=== PATIENT | female | born 1990 | race Caucasian/White ===

== ENCOUNTER 2017-11-03 16:27 | Emergency (ER) | payer OTHER ==
[2017-11-03 17:18] LABS: Urine Blood NEGATIVE (NEG); Urine Glucose NEGATIVE (NEG); Urine Protein TRACE (NEG)
[2017-11-03 17:59] LABS: Absolute Lymphocytes (CBC) 0.6 K/uL (0.7-4.9); Absolute Monocytes 1.2 K/uL (0.1-1.3); Absolute Neutrophil 10.6 K/uL (1.8-8.0); Basophils % 0.2 % (0-1.3); Eosinophils % 0.1 % (0-4.4); Hematocrit 38.3 % (36.0-45.0); Lymphocytes % 4.6 % (15.3-44.8); MCH 29.3 pg (27.0-35.0); MCV 86.2 fL (80-100); MPV 7.1 fL (7.6-11.3); Monocytes % 9.4 % (3.3-12.3); RBC Red Blood Cell Count 4.44 M/uL (3.86-4.86)
[2017-11-03] MEDS ORDERED: METOCLOPRAMIDE 10 MG/2mL INJ ONE (18:00)
[2017-11-03] MEDS ORDERED: DIPHENHYDRAMINE 50 MG/ML VIAL ONE (18:00)
[2017-11-03] MEDS ORDERED: KETOROLAC 30 MG/ML INJ ONE (18:00)
[2017-11-03] MEDS ORDERED: NA CHLORIDE 0.9% 1,000 ML ONE (18:00)
[2017-11-03 18:11] LABS: BUN Blood Urea Nitrogen 13 mg/dL (6-20); Bicarbonate 26 mEq/L (21-31); Glucose Level 100 mg/dL (65-120); Potassium 3.4 mEq/L (3.6-5.0); Sodium Level 138 mEq/L (135-145)
[2017-11-03] MEDS ORDERED: POTASSIUM CL SA 10 MEQ TAB PO ONE (18:47)
--- NOTE | 2017-11-03 19:33 | ER ---
Nurse's Notes [facility] Name: Jessie Tirado Age: 27 yrs Sex: Female : 1990 Arrival Date: 11/03/2017 Time: 16:29 Bed 14 Private MD: Musa Mckeon Diagnosis: Migraine Presentation: 11/03 16:32 Presenting complaint: Patient states: I have a bad headache, nausea, and chills. la1 Transition of care: patient was not received from another setting of care. Onset of symptoms was November 03, 2017. Initial Sepsis Screen: Does the patient meet any 2 criteria? No. Patient's initial sepsis screen is negative. Does the patient have a suspected source of infection? No. Patient's initial sepsis screen is negative. Care prior to arrival: None. 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 - Social history:: Smoking status: Patient/guardian denies using tobacco. Screenin:22 Abuse screen: Denies threats or abuse. Denies injuries from another. Nutritional ph screening: No deficits noted. Tuberculosis screening: No symptoms or risk factors identified. Fall Risk None identified. Assessment: 18:12 General: Appears in no apparent distress. uncomfortable, slender, well groomed, ph Behavior is calm, cooperative, appropriate for age, Denies fever, feeling ill. Pain: Complains of pain in head Pain currently is 7 out of 10 on a pain scale. Neuro: Level of Consciousness is awake, alert, obeys commands, Oriented to person, place, time, situation, Reports headache in entire head photophobia Denies blurred vision dizziness. Cardiovascular: Capillary refill < 3 seconds Patient's skin is warm and dry. Respiratory: Airway is patent Respiratory effort is even, unlabored, Respiratory pattern is regular, symmetrical. GI: Reports nausea, vomiting. Derm: Skin is intact, is healthy with good turgor, Skin is pink, warm \T\ dry. Musculoskeletal: Circulation, motion, and sensation intact. Range of motion: intact in all extremities. 19:09 Reassessment: Patient appears in no apparent distress at this time. Patient and/or ph family updated on plan of care and expected duration. Pain level reassessed. Patient is alert, oriented x 3, equal unlabored respirations, skin warm/dry/pink. PT resting quietly with lights off in room, states that headache has improved to 3/10 and denies nausea, SO at bedside, VSS. 19:56 Reassessment: No changes from previously documented assessment. Patient and/or family bs1 updated on plan of care and expected duration. Pain level reassessed. Patient is alert, oriented x 3, equal unlabored respirations, skin warm/dry/pink. Vital Signs: 16:33 BP 113 / 70; Pulse 111; Resp 19; Temp 100.0(TE); Pulse Ox 100% on R/A; Weight 56.7 kg; la1 Height 5 ft. 4 in. (162.56 cm); 18:25 BP 98 / 67; Pulse 83; Resp 18; Pulse Ox 100% on R/A; ph 19:57 BP 95 / 66; Pulse 94; Resp 18; Temp 98.0(T); Pulse Ox 99% on R/A; Pain 0/10; bs1 16:33 Body Mass Index 21.46 (56.70 kg, 162.56 cm) la1 [place] Coma Score: 17:54 Eye Response: spontaneous(4). Verbal Response: oriented(5). Motor Response: obeys kb commands(6). Total: 15. ED Course: 16:29 Patient arrived in ED. as 16:29 Musa Mckeon MD is Private Physician. as 16:33 Triage completed. la1 16:33 Arm band placed on left wrist. la1 17:27 Jyotsna Meyer [facility]C [facility]. kb 17:27 Pete Chandler MD is Attending Physician. kb 17:50 Initial lab(s) drawn, by me, sent to lab. Flu and/or RSV swab sent to lab. jb1 17:50 Inserted saline lock: 22 gauge. jb1 17:55 Alice Nino, BREONNA is Primary Nurse. ph 18:23 Patient has correct armband on for positive identification. Bed in low position. Call ph light in reach. Side rails up X 1. Pulse ox on. NIBP on. Warm blanket given. 18:28 No provider procedures requiring assistance completed. ph 19:45 IV discontinued, bleeding controlled, No redness/swelling at site. Pressure dressing bs1 applied. Administered Medications: 18:11 Drug: Benadryl 12.5 mg Route: IVP; Site: right antecubital; ph 20:07 Follow up: Response: No adverse reaction bs1 18:12 Drug: NS 0.9% 1000 ml Route: IV; Rate: 1000 ml; Site: right antecubital; ph 20:06 Follow up: IV Status: Completed infusion bs1 18:12 Drug: Reglan 10 mg Route: IVP; Site: right antecubital; ph 20:07 Follow up: Response: No adverse reaction bs1 18:12 Drug: TORadol 30 mg Route: IVP; Site: right antecubital; ph 20:07 Follow up: Response: No adverse reaction bs1 19:00 Drug: Potassium Chloride 20 mEq Route: PO; ph 20:06 Follow up: Response: No adverse reaction bs1 Outcome: 19:32 Discharge ordered by . kb 19:58 Discharged to home ambulatory. bs1 19:58 Condition: stable 19:58 Discharge instructions given to patient, Instructed on discharge instructions, follow up and referral plans. medication usage, Demonstrated understanding of instructions, follow-up care. 20:07 Patient left the ED. bs1 Signatures: Rodger Aragon jb1 Jyotsna Meyer, TRAINING ENGINEER-C TRAINING ENGINEER-Archana Conner Lee, RN RN laAlice Ghosh RN RN ph Salazar, Brittany, RN RN bs1 Corrections: (The following items were deleted from the chart) 18:24 18:23 Inserted saline lock: 22 gauge gilberto jb1
--- NOTE | 2017-11-03 19:33 | EDPHYS ---
Physician Documentation [facility] Name: Jessie Tirado Age: 27 yrs Sex: Female : 1990 Arrival Date: 11/03/2017 Time: 16:29 Bed 14 Private MD: Musa Mckeon ED Physician Pete Chandler HPI: 11/03 17:54 This 27 yrs old Female presents to ER via Ambulatory with complaints of kb Headache, Vomiting. 17:54 The patient complains of pain to the forehead. The patient describes the headache as kb constant. Onset: The symptoms/episode began/occurred today, at 12:00. Associated signs and symptoms: Pertinent positives: nausea, vomiting. Severity of symptoms: At its worst the pain was mild, moderate, in the emergency department the pain is unchanged. Headache History: The patient has had previous headaches and this one is similar to previous episodes. The symptoms are alleviated by nothing. the symptoms are aggravated by lights. The patient has experienced similar episodes in the past. The patient has not recently seen a physician. Pt c/o headache that started at 1200 today. States she has a history of migraines, but hasn't had one in a while. Also reports nausea, vomiting and chills. States she is breast feeding and has a clogged duct. . 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 - Social history:: Smoking status: Patient/guardian denies using tobacco. ROS: 17:54 Eyes: Negative for injury, pain, redness, and discharge, ENT: Negative for injury, kb pain, and discharge, Neck: Negative for injury, pain, and swelling, Cardiovascular: Negative for chest pain, palpitations, and edema, Respiratory: Negative for shortness of breath, cough, wheezing, and pleuritic chest pain, Back: Negative for injury and pain, : Negative for injury, bleeding, discharge, and swelling, MS/Extremity: Negative for injury and deformity, Skin: Negative for injury, rash, and discoloration. 17:54 Constitutional: Positive for chills, Negative for body aches, fatigue, fever, malaise, poor PO intake, weight loss. 17:54 Abdomen/GI: Positive for nausea and vomiting, Negative for abdominal pain, diarrhea, constipation, abdominal cramps, abdominal distension, anorexia. 17:54 Neuro: Positive for headache. Exam: 17:54 Constitutional: This is a well developed, well nourished patient who is awake, alert, kb and in no acute distress. Head/Face: Normocephalic, atraumatic. Eyes: Pupils equal round and reactive to light, extra-ocular motions intact. Lids and lashes normal. Conjunctiva and sclera are non-icteric and not injected. Cornea within normal limits. Periorbital areas with no swelling, redness, or edema. ENT: Nares patent. No nasal discharge, no septal abnormalities noted. Tympanic membranes are normal and external auditory canals are clear. Oropharynx with no redness, swelling, or masses, exudates, or evidence of obstruction, uvula midline. Mucous membranes moist. Neck: Trachea midline, no thyromegaly or masses palpated, and no cervical lymphadenopathy. Supple, full range of motion without nuchal rigidity, or vertebral point tenderness. No Meningismus. Chest/axilla: Normal chest wall appearance and motion. Nontender with no deformity. No lesions are appreciated. Cardiovascular: Regular rate and rhythm with a normal S1 and S2. No gallops, murmurs, or rubs. Normal PMI, no JVD. No pulse deficits. Respiratory: Lungs have equal breath sounds bilaterally, clear to auscultation and percussion. No rales, rhonchi or wheezes noted. No increased work of breathing, no retractions or nasal flaring. Abdomen/GI: Soft, non-tender, with normal bowel sounds. No distension or tympany. No guarding or rebound. No evidence of tenderness throughout. Skin: Warm, dry with normal turgor. Normal color with no rashes, no lesions, and no evidence of cellulitis. MS/ Extremity: Pulses equal, no cyanosis. Neurovascular intact. Full, normal range of motion. Neuro: Awake and alert, GCS 15, oriented to person, place, time, and situation. Cranial nerves II-XII grossly intact. Motor strength 5/5 in all extremities. Sensory grossly intact. Cerebellar exam normal. Normal gait. Vital Signs: 16:33 BP 113 / 70; Pulse 111; Resp 19; Temp 100.0(TE); Pulse Ox 100% on R/A; Weight 56.7 kg; la1 Height 5 ft. 4 in. (162.56 cm); 18:25 BP 98 / 67; Pulse 83; Resp 18; Pulse Ox 100% on R/A; ph 19:57 BP 95 / 66; Pulse 94; Resp 18; Temp 98.0(T); Pulse Ox 99% on R/A; Pain 0/10; bs1 16:33 Body Mass Index 21.46 (56.70 kg, 162.56 cm) la1 [place] Coma Score: 17:54 Eye Response: spontaneous(4). Verbal Response: oriented(5). Motor Response: obeys kb commands(6). Total: 15. MDM: 17:27 Patient medically screened. kb 17:54 Data reviewed: vital signs, nurses notes. Data interpreted: Pulse oximetry: on room air kb is 100 %. Interpretation: normal. 17:57 ED course: no nuchal rigidity noted. . kb 19:31 Counseling: I had a detailed discussion with the patient and/or guardian regarding: the kb historical points, exam findings, and any diagnostic results supporting the discharge/admit diagnosis, lab results, the need for outpatient follow up, a family practitioner, to return to the emergency department if symptoms worsen or persist or if there are any questions or concerns that arise at home. 19:31 ED course: Headache resolved. Pt states "I think it was just a migraine.". kb 11/03 17:13 Order name: Urine Dipstick--Ancillary (enter results); Complete Time: 17:27 eb 11/03 17:13 Order name: Urine --Ancillary (enter results); Complete Time: 17:27 eb 11/03 17:38 Order name: CBC with Diff; Complete Time: 18:05 kb 11/03 17:38 Order name: Basic Metabolic Panel; Complete Time: 18:13 kb 11/03 17:40 Order name: [place] Screen Profile; Complete Time: 18:29 kb 11/03 17:40 Order name: Flu; Complete Time: 18:12 kb 11/03 17:38 Order name: IV Start; Complete Time: 17:55 kb Administered Medications: 18:11 Drug: Benadryl 12.5 mg Route: IVP; Site: right antecubital; ph 20:07 Follow up: Response: No adverse reaction bs1 18:12 Drug: NS 0.9% 1000 ml Route: IV; Rate: 1000 ml; Site: right antecubital; ph 20:06 Follow up: IV Status: Completed infusion bs1 18:12 Drug: Reglan 10 mg Route: IVP; Site: right antecubital; ph 20:07 Follow up: Response: No adverse reaction bs1 18:12 Drug: TORadol 30 mg Route: IVP; Site: right antecubital; ph 20:07 Follow up: Response: No adverse reaction bs1 19:00 Drug: Potassium Chloride 20 mEq Route: PO; ph 20:06 Follow up: Response: No adverse reaction bs1 Disposition: 11/04 09:15 Co-signature as Attending Physician, Pete Chandler MD I agree with the assessment and joy plan of care. Disposition: 11/03/17 19:32 Discharged to Home. Impression: Migraine. - Condition is Stable. - Discharge Instructions: Migraine Headache, [id number]. - Medication Reconciliation Form, Thank You Letter, Antibiotic Education, Prescription Opioid Use form. - Follow up: Emergency Department; When: As needed; Reason: Worsening of condition. Follow up: Private Physician; When: 2 - 3 days; Reason: Recheck today's complaints, Continuance of care, Re-evaluation by your physician. Signatures: Dispatcher [employer] Jyotsna Baires, CHECK PROCESSING CLERK-C DANTE-Pete Gay MD MD cha Attema, Lee, RN RN la1 Alice Nino, RN RN Vicki Mccarthy RN RN bs1
== END 2017-11-03 20:07 | disposition home or self-care (01) ==
LOC: ER 16:27
DX: G43.909 Migraine, unspecified, not intractable, without status migrainosus (principal)
CPT/HCPCS: 36415; 80048; 81003; 81025; 85025; 86308; 87804; 96361; 96374; 96375; 99284; J2765; J7030